=== PATIENT | male | born 1980 | race African-American/Black ===

== ENCOUNTER 2017-10-06 01:10 | Emergency (ER) | payer OTHER ==
[~2017-10-06] VITALS: Ht 188 cm; Wt 114.3 kg
[2017-10-06] MEDS ORDERED: NKM (01:16)
[2017-10-06] MEDS ORDERED: IBUPROFEN800 MG ORAL (01:29)
[2017-10-06] MEDS ORDERED: VALIUM5 MG ORAL (01:29)
[2017-10-06] MEDS ORDERED: ROBAXIN-750750 MG PO (01:29)
[2017-10-06] MEDS ORDERED: Ketorolac 60mg Inj IM ONE (01:30)
[2017-10-06] MEDS ORDERED: Methocarbamol 750mg tab ORAL ONE (01:30)
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
[2017-10-06 01:39] VITALS: BP 147/96
[2017-10-06 01:42] VITALS: BP 147/96
== END 2017-10-06 01:42 | disposition home or self-care (01) ==
LOC: EMR 01:29
DX: M54.2 Cervicalgia (principal); M54.5 Low back pain; V43.52XA Car driver injured in collision with other type car in traffic accident, initial encounter; Y93.9 Activity, unspecified; Y92.410 Unspecified street and highway as the place of occurrence of the external cause
CPT/HCPCS: 96372; 99283